=== PATIENT | female | born 1985 | race Caucasian/White ===

== ENCOUNTER 2020-11-02 15:37 | Emergency (ER) | payer OTHER ==
[~2020-11-02] VITALS: Ht 167.6 cm; Wt 74.8 kg
[2020-11-02 16:42] VITALS: BP 118/78
== END 2020-11-02 16:42 | disposition home or self-care (01) ==
LOC: M.ERS 15:37
DX: Z20.822 Contact with and (suspected) exposure to COVID-19 (principal); J45.909 Unspecified asthma, uncomplicated; Z91.041 Radiographic dye allergy status

== ENCOUNTER 2020-11-05 12:51 | Emergency (ER) | payer OTHER, MEDICAID ==
[~2020-11-05] VITALS: Ht 167.6 cm; Wt 74.8 kg
[2020-11-05 14:49] VITALS: BP 116/68
== END 2020-11-05 14:49 | disposition home or self-care (01) ==
LOC: M.ERS 12:51
DX: Z20.822 Contact with and (suspected) exposure to COVID-19 (principal); J45.909 Unspecified asthma, uncomplicated; Z88.8 Allergy status to other drugs, medicaments and biological substances